=== PATIENT | male | born 1980 | race American Indian/Alaskan Native ===

== ENCOUNTER 2019-03-03 06:08 | Day surgery (SDC) | payer MEDICARE ==
[~2019-03-03 06:08] MED LIST: ANCEF/STERILE WATER 2 GM/20 ML 2 GM/20 ML SYRINGE IV NR; MARCAINE 0.5% INFILTRATI ONE
[2019-03-03] MEDS ORDERED: NACL BACTERIOSTATIC INFILTRATI ONE (06:45)
[2019-03-03] MEDS ORDERED: NACL 0.9% 1000 ML 1,000 ML IV SCH (07:00)
--- NOTE | 2019-03-03 07:12 | Anesthesia Day of Surgery ---
Anesthesia Day of Surgery - Day of Surgery Patient Examined: Yes Patient H&P Reviewed: Yes Patient is NPO: Yes Beta Blockers: Yes
--- NOTE | 2019-03-03 07:12 | Anesthesia Consultation ---
Anesthesia Consult and Med Hx Date of service: 03/03/19 - Airway Anesthetic Teeth Evaluation: Good ROM Head & Neck: Adequate Mental/Hyoid Distance: Adequate Mallampati Class: Class II Intubation Access Assessment: Good - Pre-Operative Health Status ASA Pre-Surgery Classification: ASA4 Proposed Anesthetic Plan: General, MAC - Pulmonary Hx Smoking: Yes (Former) - Cardiovascular System Hx Hypertension: Yes (CHF 15%) Hx Pacemaker: Yes Hx Internal Defibrillator: Yes (Never discharged) - Central Nervous System Hx Psychiatric Problems: Yes - Gastrointestinal Hx Gastroesophageal Reflux Disease: Yes - Endocrine Hx Renal Disease: Yes Hx End Stage Renal Disease: Yes (Last HD) - Other Systems Hx Cancer: No
[2019-03-03] MEDS ORDERED: NACL P/F VIAL (10 ML) 10 ML ONE (07:14)
[2019-03-03] MEDS ORDERED: NACL 0.9% 500 ML 500 ML ONE (07:14)
[2019-03-03] MEDS ORDERED: MARCAINE 0.5% INFILTRATI ONE ×2 (07:14→11:45)
[2019-03-03] MEDS ORDERED: HEPARIN 10,000 UNITS/10 ML ONE (07:14)
[2019-03-03] MEDS ORDERED: ZOFRAN IV PRN (07:30)
[2019-03-03] MEDS ORDERED: PROTONIX PO NR (07:30)
[2019-03-03] MEDS ORDERED: SUBLIMAZE IV PRN (07:30)
[2019-03-03] MEDS ORDERED: SUBLIMAZE ONE ×2 (07:35→10:34)
[2019-03-03] MEDS ORDERED: DIPRIVAN 10 MG/ML IV ONE (07:35)
[2019-03-03] MEDS ORDERED: XYLOCAINE MPF 2% ONE (07:39)
[2019-03-03] MEDS ORDERED: ROBINUL ONE (07:39)
[2019-03-03] MEDS ORDERED: PHENYLEPHRINE/NS Syringe 1,000 MCG/10 ML IV ONE (07:40)
[2019-03-03] MEDS ORDERED: NITROGLYCERIN SYRINGE 0 ML ONE (07:49)
[2019-03-03] MEDS ORDERED: RIFADIN ONE (07:50)
[2019-03-03] MEDS ORDERED: ADRENALIN ONE (08:24)
[2019-03-03] MEDS ORDERED: LEVOPHED IV ONE (08:25)
[2019-03-03] MEDS ORDERED: DEXMEDETOMIDINE IV ONE (08:25)
[2019-03-03] MEDS ORDERED: Vasostrict ONE (08:25)
[2019-03-03] MEDS ORDERED: VERSED IV ONE (08:28)
[2019-03-03] MEDS ORDERED: KETALAR ONE (08:28)
[2019-03-03] MEDS ORDERED: XYLOCAINE 1%/ EPI 1:100,000 INFILTRATI ONE ×3 (08:38→09:10)
[2019-03-03] MEDS ORDERED: SODIUM BICARBONATE ONE (08:38)
[2019-03-03] MEDS ORDERED: HEPARIN ONE ×2 (09:18→09:24)
[2019-03-03] MEDS ORDERED: HEPARIN HEMOD-PORT ONE (09:35)
[2019-03-03] MEDS ORDERED: VERSED ONE (09:56)
[2019-03-03] MEDS ORDERED: HEPARIN 10,000 UNITS/10 ML IV ONE (10:00)
[2019-03-03] MEDS ORDERED: NACL 0.9% 250ML IV ONE (10:00)
[2019-03-03] MEDS ORDERED: NACL 0.9% 100 ML ONE (10:03)
[2019-03-03] MEDS ORDERED: NACL P/F VIAL (10 ML) 20 ML ONE (10:03)
--- NOTE | 2019-03-03 10:27 | Fluoroscopy Report ---
FLUOROSCOPY CENTRAL VENOUS DEVICE PLACEMENT INDICATION: Intraoperative localization, permacath placement, end-stage renal disease. IMPRESSION: 2 images of chest were submitted for documentation purposes with radiology involvement. A right IJ permacath has been inserted which terminates in the superior right atrium. There is no ob vious pneumothorax or pneumomediastinum. Mild cardiomegaly is suspected. Fluoroscopic time: 35 seconds Signer Name: Humble Tang Jr, MD Signed: 03/03/2019 10:23 AM Workstation Name: [id number]
[2019-03-03] MEDS ORDERED: RIFADIN IV ONE (10:30)
[2019-03-03] MEDS ORDERED: NACL 0.9% IR ONE ×2 (10:39)
--- NOTE | 2019-03-03 12:51 | Short Stay Summary ---
Short Stay Documentation Date of service: 03/03/19 Narrative H&P: See H&P - History H&P: obtained from office - Allergies and Medications Current Medications: Allergies No Known Allergies Allergy (Unverified 02/27/19 18:31) Home Medications Medication Instructions Recorded Confirmed Last Taken Type AtorvaSTATin 20 mg PO HS 03/03/19 03/03/19 03/02/19 21:00 History Auryxia 210 mg PO TID 03/03/19 03/03/19 03/02/19 18:00 History Carvedilol 6.25 mg PO BID 03/03/19 03/03/19 03/02/19 17:00 History Dicyclomine 20 mg PO TID 03/03/19 03/03/19 03/02/19 17:00 History Ferric Citrate (Nf) [Auryxia] 210 mg PO TID 03/03/19 03/03/19 03/02/19 17:00 History Folic Acid 1 mg PO DAILY 03/03/19 03/03/19 03/02/19 09:00 History Loperamide 2 mg PO PRN PRN 03/03/19 03/03/19 Unknown History Pantoprazole Sodium 40 mg PO DAILY 03/03/19 03/03/19 03/02/19 09:00 History Sacubitril/Valsartan [Entresto 24 24 mg PO BID 03/03/19 03/03/19 03/02/19 17:00 History - 26 mg] Sevelamer Carbonate 800 mg PO TID 03/03/19 03/03/19 03/02/19 17:00 History Zofran TAB 4 mg PO PRN PRN 03/03/19 03/03/19 Unknown History clonazePAM 1 mg PO HS 03/03/19 03/03/19 03/02/19 20:00 History traZODone 50 mg PO HS 03/03/19 03/03/19 03/02/19 21:00 History Active Medications Fentanyl (Sublimaze) 50 mcg IV Q5MIN PRN PRN Reason: Pain , Severe (7-10) Stop: 03/03/19 18:00 Cefazolin Sodium (Ancef/Sterile Water 2 Gm/20 Ml) 2 gm in 20 mls @ 80 mls/hr IV PREOP NR; Protocol Stop: 03/03/19 23:59 Sodium Chloride (Nacl 0.9% 1000 Ml) 1,000 mls @ 42 mls/hr IV DIRECT CAMILO Last Admin: 03/03/19 07:25 Dose: 42 mls/hr Documented by: Ondansetron HCl (Zofran) 4 mg IV ONCE PRN PRN Reason: Nausea And Vomiting Stop: 03/03/19 16:00 Pantoprazole Sodium (Protonix) 40 mg PO ONCE NR Stop: 03/03/19 16:00 Last Admin: 03/03/19 07:40 Dose: 40 mg Documented by: - Brief post op/procedure progress note Date of procedure: 03/03/19 Pre-op diagnosis: Complications of Dialysis Access Post-op diagnosis: same Procedure: 1. Ultrasound-Guided Access Right Internal Jugular Vein 2. Placement of 19 cm Baerd GlidePath Permacath In Right Internal Jugular Vein 3. Radiologic Supervision with Interpretation 4. Revision of Left Arm Arteriovenous Fistula With Interposition 7 mm Bovine Graft Anesthesia: MAC, local Surgeon: CHYNA ARREDONDO Estimated blood loss: 50-100ml Pathology: list (midportion of left AV fistula sent to pathology) Specimen disposition: to lab Condition: stable - Disposition Condition at discharge: Good Disposition: DC-01 TO HOME OR SELFCARE Short Stay Discharge Plan Activity: other (no heavy lifting with left arm) Wound: open to air, keep clean and dry, per your surgeon's advice (do not get permacath with), other (okay to wash the wound with soap and water but do not soak in water) Special Instructions: other (okay to use permacath for dialysis) Follow up with: CHYNA ARREDONDO MD [Staff Physician] - 14 Days Prescriptions: Oxycodone HCl/Acetaminophen [Percocet 7.5/325 mg] 1 each PO Q6HR PRN #40 tablet PRN Reason: Pain
--- NOTE | 2019-03-03 13:04 | Operative Report ---
Operative Report Operative Report: Date of procedure: 03/03/2019 Pre-operative diagnosis: Complications of Dialysis Access Post-operative diagnosis: Same Procedure(s): 1. Ultrasound-Guided Access Right Internal Vein 2. Placement of 23 cm Bard GlidePath Permacath 3. Radiologic Supervision with Interpretation 4. Revision of Left Arm Arteriovenous Fistula With Interposition 7 mm Bovine Graft Surgeon: Marcelo Galindo MD Food Production Manager: None Anesthesia: MAC/Local EBL: 50 mL Counts: Correct Complications: None Condition: Stable Findings: Successful placement of right IJ permacath. Specimen: None Indication: The patient is a 38-year-old male with a history of end-stage renal disease was on hemodialysis through a left arm brachiocephalic arteriovenous fistula. 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 He is in need of revision of the fistula and was given the risks, benefits, and alternative procedures has consented to the procedure. Description of Procedure: The patient was brought to the operating room and laid in supine position and his right neck and chest were prepped and draped in normal sterile fashion. Ultrasound was used to identify the right internal jugular vein and the overlying skin and soft tissue was anesthetized with lidocaine. A small stab incision was made and then the access needle was used ultrasound guidance in the right internal jugular vein. An 035 J-wire was advanced to the central venous system under fluoroscopic guidance. The tract was serially dilated up to a 16 Sinhala peel-away safety sheath and the inner cannula and wire removed. An exit site on the chest was then chosen and the presumed tunnel was anesthetized with lidocaine. A small stab incision was made on the chest and then the permacath was connected to the tunneler and pulled antegrade through the tunnel. The catheter was inserted into the safe sheath and safety sheath was pulled away. The catheter was positioned under fluoroscopy. Once in adequate position both ports were aspirated and flushed and then primed with the appropriate amount heparin. The neck incision was then closed with 4-0 Monocryl in interrupted subcuticular fashion and dressed with Surgicel. The catheters was dressed sterilely. Final fluoroscopy demonstrated the catheter was in excellent position without any evidence of pneumothorax. At this point the sterile field was broken and then the patient's left arm was prepped and draped in normal sterile fashion. A transverse incision was then created to his previous incision just above the antecubital crease and carried down to the arterial inflow the fistula by sharp dissection. The fistula was dissected circumferentially and then controlled with a vessel loop. I then dissected out the remainder of the fistula within this portion of the incision circumferentially freeing all of the fistula within this incision. I then used lidocaine to anesthetize the skin overlying the midportion of the fistula extending from the upper arm where the fistula was normal in caliber down to just above the previous transverse incision and then made a longitudinal incision using a 10 blade. Sharp dissection was used to carry the incision down to the fistula and then the venous outflow the fistula, and the normal portion of the fistula, was dissected circumferentially and controlled with a vessel loop. I then dissected the entire fistula, within this portion of the incision circumferentially. There was a portion of the fistula that was between skin bridge that was dissected free of the skin bridge and dissected surfaces were essentially freeing the entire fistula. I then suture ligated both the arterial inflow and venous outflow of the fistula with a 2-0 silk and then transected the fistula leaving a cuff to sew an interposition graft. I removed the specimen and passed it off for pathology. I then using Monika-Wick tunneler to tunnel from the arterial inflow incision towards the venous outflow of the fistula. I tunneled medial to the previous incision ensuring that the graft remained covered. I then pulled the graft back through the tunnel and infused with heparinized saline to ensure that it had not been kinked or twisted. Once I did this I then beveled the graft as well as the cuff of the arterial inflow an end to end anastomosis using 2 6-0 Prolene sterile fashion. After creating the anastomosis I released the clamp on the arterial inflow and clamped the outflow of the graft allowing flow into the graft. Hemostasis on the anastomosis was achieved with 6-0 Prolene in interrupted fashion. Once hemostasis was achieved and placed quick clot within the wound to achieve further hemostasis. I then cut the graft to length and beveled the distal portion of the graft as well as beveling the venous cuff of the fistula. I created an end to end anastomosis between the graft and the venous outflow using 2 6-0 Prolene in running fashion. Upon completing the anastomosis I released all clamps allowing flow into the graft which had a palpable thrill. Hemostasis on the anastomosis was achieved with 6-0 Prolene in interrupted fashion. Once hemostasis was achieved I placed quick clot in the incision where the fistula had been transected to achieve hemostasis. Further hemostasis was achieved with Fiona. Once hemostasis was achieved both incisions were anesthetized with 0.5% Marcaine and then closed in 2 layers using 3-0 Vicryl in a running fashion the deep dermal layer and 4-0 Monocryl in running fashion subcuticular and then dressed with Dermabond. The patient tolerated the procedure well, all sponge needle and instrument counts were correct, the patient was taken to recovery in stable condition.
[2019-03-03 14:01] VITALS: BP 112/74
[2019-03-03] MEDS ORDERED: ISOPTO TEARS 0.5% OU ONE (14:12)
--- NOTE | 2019-03-03 14:59 | Post Anesthesia Evaluation ---
- Post Anesthesia Evaluation Patient Participated: Yes Airway Patent: Yes Stable Respiratory Function: Yes Nausea/Vomiting: No Temp > 96.8F: Yes Pain Manageable: Yes Adequeate Hydration: Yes Anesthesia Complications: Yes (see comments) Other Comments: In PACU patient complained of pain and blurred vision in left eye. On exam, left eye was noted to be slightly red compared to right, with normal ROM and pupillary response to light. No foreign body present. Discussed with patient and mother likely diagnosis of corneal abrasion including potential causes and expectant management. He was instructed to avoid rubbing the eye and was given lubricant eye drops for use q6h prn. Contact information for both patient and his mother were obtained for phone followup. Additionally, both were advised of red flag symptoms such as increased pain and worsening vision which would indicate a need to return to the ED for further ophtho evaluation and treatment. Patient mobile: [phone]. Kimberly Youngblood (mother) mobile: [phone]
== END 2019-03-03 15:10 | disposition home or self-care (01) ==
LOC: OR 06:08
PROVIDERS: ATTEND Surgery Vascular Surgery
DX: T82.898A Other specified complication of vascular prosthetic devices, implants and grafts, initial encounter (principal); I13.2 Hypertensive heart and chronic kidney disease with heart failure and with stage 5 chronic kidney disease, or end stage renal disease; N18.6 End stage renal disease; I50.9 Heart failure, unspecified; G43.909 Migraine, unspecified, not intractable, without status migrainosus; K21.9 Gastro-esophageal reflux disease without esophagitis; F32.9 Major depressive disorder, single episode, unspecified; F41.9 Anxiety disorder, unspecified; Z98.890 Other specified postprocedural states; Z95.0 Presence of cardiac pacemaker; Z90.49 Acquired absence of other specified parts of digestive tract; Z79.899 Other long term (current) drug therapy; Z87.891 Personal history of nicotine dependence
CPT/HCPCS: 36558; 36832; 77001; 82803; 88304; C1750; C1768; J0171; J0690; J1644; J2250; J2370; J2704; J3010; J3490; J7030; J7040; J7050

== ENCOUNTER 2019-03-12 06:01 | Day surgery (SDC) | payer MEDICARE ==
[2019-03-12] MEDS ORDERED: SUBLIMAZE ONE ×3 (07:14→10:21)
[2019-03-12] MEDS ORDERED: XYLOCAINE MPF 2% ONE (07:14)
[2019-03-12] MEDS ORDERED: DIPRIVAN 10 MG/ML IV ONE (07:15)
[2019-03-12] MEDS ORDERED: XYLOCAINE 1% 20 mL ONE (07:27)
[2019-03-12] MEDS ORDERED: SODIUM BICARBONATE ONE (07:27)
--- NOTE | 2019-03-12 07:39 | Anesthesia Consultation ---
Anesthesia Consult and Med Hx Date of service: 03/12/19 - Airway Anesthetic Teeth Evaluation: Caps ROM Head & Neck: Adequate Mental/Hyoid Distance: Adequate Mallampati Class: Class II Intubation Access Assessment: Good - Pulmonary Exam CTA: Yes - Cardiac Exam Cardiac Exam: RRR - Pre-Operative Health Status ASA Pre-Surgery Classification: ASA4 Proposed Anesthetic Plan: General - Pulmonary Hx Smoking: Yes (Former) - Cardiovascular System Hx Hypertension: Yes Hx Pacemaker: Yes Hx Internal Defibrillator: Yes (CHF 15 % , never discharged ) - Central Nervous System Hx Psychiatric Problems: Yes - Gastrointestinal Hx Gastroesophageal Reflux Disease: Yes - Endocrine Hx Renal Disease: Yes Hx End Stage Renal Disease: Yes - Other Systems Hx Cancer: No - Additional Comments Anesthesia Medical History Comments: HTN, ESRD on HD last dialysis -one day ago, CHF EF 15% , has AICD . Had GA one week ago unevenful. For GA for I & D .
[2019-03-12] MEDS ORDERED: ZOFRAN IV PRN (07:40)
--- NOTE | 2019-03-12 07:40 | Anesthesia Day of Surgery ---
Anesthesia Day of Surgery - Day of Surgery Patient Examined: Yes Patient H&P Reviewed: Yes Patient is NPO: Yes
[2019-03-12] MEDS ORDERED: NACL 0.9% 1000 ML 1,000 ML IV SCH (08:00)
[2019-03-12] MEDS ORDERED: DEXMEDETOMIDINE IV ONE (08:01)
[2019-03-12] MEDS ORDERED: KETALAR ONE (08:15)
[2019-03-12] MEDS ORDERED: VERSED IV ONE (08:15)
[2019-03-12] MEDS ORDERED: NACL 0.9% IR ONE (08:16)
[2019-03-12] MEDS ORDERED: XYLOCAINE 1% 20 mL INFILTRATI ONE (08:16)
[2019-03-12] MEDS ORDERED: BACITRACIN IR ONE (08:16)
[2019-03-12] MEDS ORDERED: NACL P/F VIAL (10 ML) INFILTRATI ONE (08:16)
[2019-03-12] MEDS ORDERED: BACITRACIN ONE (08:48)
[2019-03-12] MEDS ORDERED: NACL P/F VIAL (10 ML) 10 ML ONE (08:48)
--- NOTE | 2019-03-12 09:26 | Short Stay Summary ---
Short Stay Documentation Date of service: 03/12/19 Narrative H&P: See H&P - History H&P: obtained from office - Allergies and Medications Current Medications: Allergies No Known Allergies Allergy (Unverified 03/11/19 16:21) Home Medications Medication Instructions Recorded Confirmed Last Taken Type AtorvaSTATin 20 mg PO HS 03/03/19 03/11/19 03/11/19 13:00 History Auryxia 210 mg PO TID 03/03/19 03/11/19 03/11/19 13:00 History Carvedilol 6.25 mg PO BID 03/03/19 03/11/19 03/12/19 05:00 History Dicyclomine 20 mg PO TID 03/03/19 03/11/19 03/11/19 13:00 History Ferric Citrate (Nf) [Auryxia] 210 mg PO TID 03/03/19 03/11/19 03/11/19 13:00 History Folic Acid 1 mg PO DAILY 03/03/19 03/11/19 03/11/19 13:00 History Loperamide 2 mg PO PRN PRN 03/03/19 03/11/19 03/11/19 13:00 History Oxycodone HCl/Acetaminophen 1 each PO Q6HR PRN #40 tablet 03/03/19 03/11/19 03/11/19 13:00 Rx [Percocet 7.5/325 mg] Pantoprazole Sodium 40 mg PO DAILY 03/03/19 03/11/19 03/12/19 05:00 History Sacubitril/Valsartan [Entresto 24 24 mg PO BID 03/03/19 03/11/19 03/11/19 13:00 History - 26 mg] Sevelamer Carbonate 800 mg PO TID 03/03/19 03/11/19 03/11/19 13:00 History Zofran TAB 4 mg PO PRN PRN 03/03/19 03/11/19 03/11/19 13:00 History clonazePAM 1 mg PO HS 03/03/19 03/11/19 03/11/19 13:00 History traZODone 50 mg PO HS 03/03/19 03/11/19 03/11/19 13:00 History Hydralazine HCl 50 mg PO TID 03/11/19 03/11/1919 05:00 History Active Medications Hydromorphone HCl (Dilaudid) 0.5 mg IV Q10MIN PRN PRN Reason: Pain , Severe (7-10) Stop: 03/12/19 20:00 Sodium Chloride (Nacl 0.9% 1000 Ml) 1,000 mls @ 75 mls/hr IV DIRECT CAMILO Last Admin: 03/12/19 08:09 Dose: 75 mls/hr Documented by: Ondansetron HCl (Zofran) 4 mg IV ONCE PRN PRN Reason: Nausea And Vomiting Stop: 03/12/19 16:00 - Brief post op/procedure progress note Date of procedure: 03/12/19 Pre-op diagnosis: Complications of Dialysis Access Post-op diagnosis: same Procedure: 1. Evacuation of Left Arm Postoperative Hematoma with Pulse Lavage of Wound Anesthesia: MAC, local Surgeon: CHYNA ARREDONDO Estimated blood loss: minimal Pathology: list (left arm hematoma) Specimen disposition: discarded Condition: stable - Disposition Condition at discharge: Good Disposition: DC-01 TO HOME OR SELFCARE Short Stay Discharge Plan Activity: other (no heavy lifting with left arm) Wound: keep clean and dry (Once the bandages are removed, okay to wash with soap and water but do not soak in water), remove dressing (Keep Gunnar bandage in place for 72 hour prior to removing.), other (keep left arm elevated when not using the arm) Follow up with: CHYNA ARREDONDO MD [Staff Physician] - 14 Days
--- NOTE | 2019-03-12 09:34 | Operative Report ---
Operative Report Operative Report: Date of Procedure: 03/12/2019 Pre-operative Diagnosis: Complications of Dialysis Access Post-operative Diagnosis: Same Procedure(s): 1. Evacuation of Left Arm Postoperative Hematoma with Pulse Lavage of Wound Surgeon: Marcelo Galindo M.D. Rotary Derrick Operator: Kathi Anesthesia: Local/MAC EBL: Minimal Counts: Correct Complications: None Condition: Stable Findings: Hematoma within the wound without evidence of infection. The graft was not exposed. Specimen: Hematoma was discarded Indication: The patient is a 38-year-old male with a history of end-stage renal disease who recently had revision of his left arm arteriovenous fistula with interposition bovine graft. She presents with significant swelling of the left arm and at the area of incision. He is in need of incision and drainage of the incision with exploration of the incision. He was given the risks, benefits, and alternative procedures and consented to the procedure. Description of Procedure: The patient was brought to the operating room and laid in supine position. After he was adequately sedated his left arm was prepped and draped in normal sterile fashion. Lidocaine was used to anesthetize the previous incision and curved Mayos were used to reopen the incision. Upon opening the incision was significant amount of hematoma that was evacuated. Once was evacuated and pulse lavage infused with antibiotics was used to irrigate the wound. Once the wound was irrigated was explored and there were 2 small areas of oozing on the muscle that was controlled with cautery. Further irrigation of the wound revealed no evidence of obvious infection. Additionally there was no evidence of exposed graft. 2-0 Vicryl suture in interrupted fashion with then used to close the space and reapproximate the deep tissue. Zip Tie wound closure were then placed on each skin edge and tightened to reapproximate the skin edges. 2-0 Ethilon in horizontal mattress fashion was then used to reapproximate the skin edges and the transverse incision at the antecubital crease. Fluffs were folded in half and placed over the upper arm incision and then the arm was wrapped with an Gunnar bandage to apply pressure and minimize the space to decrease the chances of recannulation of fluid within the incision. The patient tolerated the procedure well. All sponge, needle, instrument counts were correct. The patient was taken to the recovery area in stable condition.
[2019-03-12] MEDS: DILAUDID IV PRN ×2 (10:04→10:14)
[2019-03-12] MEDS: SUBLIMAZE IV PRN ×2 (10:20→10:43)
--- NOTE | 2019-03-12 11:19 | Post Anesthesia Evaluation ---
- Post Anesthesia Evaluation Patient Participated: Yes Airway Patent: Yes Stable Respiratory Function: Yes Nausea/Vomiting: No Temp > 96.8F: Yes Pain Manageable: Yes Adequeate Hydration: Yes Anesthesia Complications: No Block Receding Appropriately: Not Applicable Patient on Ventilator: No
[2019-03-12 14:24] VITALS: BP 159/88
== END 2019-03-12 06:02 | disposition home or self-care (01) ==
LOC: OR 06:01
PROVIDERS: ATTEND Surgery Vascular Surgery
DX: L76.32 Postprocedural hematoma of skin and subcutaneous tissue following other procedure (principal); T82.898A Other specified complication of vascular prosthetic devices, implants and grafts, initial encounter; I13.2 Hypertensive heart and chronic kidney disease with heart failure and with stage 5 chronic kidney disease, or end stage renal disease; N18.6 End stage renal disease; I50.9 Heart failure, unspecified; K21.9 Gastro-esophageal reflux disease without esophagitis; G43.909 Migraine, unspecified, not intractable, without status migrainosus; F32.9 Major depressive disorder, single episode, unspecified; F41.9 Anxiety disorder, unspecified; Z98.890 Other specified postprocedural states; Z79.899 Other long term (current) drug therapy; Z95.0 Presence of cardiac pacemaker; Z90.49 Acquired absence of other specified parts of digestive tract; Z87.891 Personal history of nicotine dependence; Z86.2 Personal history of diseases of the blood and blood-forming organs and certain disorders involving the immune mechanism
CPT/HCPCS: 10140; 82803; J1170; J2250; J2704; J3010; J3490; J7030

== ENCOUNTER 2019-03-16 20:27 | Inpatient (IN) | payer MEDICARE ==
--- NOTE | 2019-03-16 20:59 | Emergency Department Report ---
Blank Doc - Documentation Documentation: This is a 38-year-old male that presents with left arm pain. Had surgery to the arm for dialysis port. This initial assessment/diagnostic orders/clinical plan/treatment(s) is/are subject to change based on patient's health status, clinical progression and re- assessment by fellow clinical providers in the ED. Further treatment and workup at subsequent clinical providers discretion. Patient/guardians urged not to elope from the ED as their condition may be serious if not clinically assessed and managed. Initial orders include: 1- Patient sent to MAIN ED for further evaluation and treatment 2- labs
--- NOTE | 2019-03-16 22:08 | Emergency Department Report ---
ED Upper Extremity Inj HPI - General Chief Complaint: Extremity Injury, Upper Stated Complaint: LEFT ARM PAIN Time Seen by Provider: 03/16/19 20:58 Source: patient Mode of arrival: Ambulatory Limitations: No Limitations - History of Present Illness Initial Comments: 38-year-old male patient with ESRD presents to ED with left arm pain. The patient underwent AV graft placement 2 weeks ago, then evacuation of hematoma 9 days later. Patient presents complaining of swelling in the left forearm and hand since the first surgery. States the surgical site was since his second surgery. Patient reports continued pain in the arm. Patient was dialyzed today via his PermCath. Patient reported he spoke with Dr. Edge, vascular surgeon, who advised to come to the ER. Vascular Surgeon: Dr Marcelo Galindo MD Complaint: Injury to:: left, forearm -: week(s) (2) Improves With: none Worsens With: movement of extremity Context: other (recent surgery) - Related Data Home Medications Medication Instructions Recorded Confirmed Last Taken AtorvaSTATin 20 mg PO HS 03/03/19 03/17/19 2 Days Ago ~03/15/19 Auryxia 420 mg PO TID 03/03/19 03/17/19 1 Day Ago ~03/16/19 Carvedilol 6.25 mg PO BID 03/03/19 03/17/19 1 Day Ago ~03/16/19 Dicyclomine 20 mg PO TID 03/03/19 03/17/19 1 Day Ago ~03/16/19 Folic Acid 1 mg PO DAILY 03/03/19 03/17/19 1 Day Ago ~03/16/19 Loperamide 2 mg PO PRN PRN 03/03/19 03/17/19 03/11/19 13:00 Pantoprazole Sodium 40 mg PO DAILY 03/03/19 03/17/19 1 Day Ago ~03/16/19 Sevelamer Carbonate 800 mg PO TID 03/03/19 03/17/19 1 Day Ago ~03/16/19 Zofran TAB 4 mg PO PRN PRN 03/03/19 03/17/19 1 Day Ago ~03/16/19 clonazePAM 1 mg PO HS 03/03/19 03/17/19 2 Days Ago ~03/15/19 traZODone 50 mg PO HS 03/03/19 03/17/19 2 Days Ago ~03/15/19 Hydralazine HCl 50 mg PO TID 03/11/19 03/17/19 1 Day Ago ~03/16/19 raNITIdine HCl [Zantac] 150 mg PO BID 03/17/19 03/17/19 1 Day Ago ~03/16/19 Allergies Allergy/AdvReac Type Severity Reaction Status Date / Time No Known Allergies Allergy Unverified 03/11/19 16:21 ED Review of Systems ROS: Stated complaint: LEFT ARM PAIN Other details as noted in HPI Comment: All other systems reviewed and negative Constitutional: denies: fever Musculoskeletal: as per HPI ED Past Medical Hx - Past Medical History Previous Medical History?: Yes Hx Hypertension: Yes Hx Congestive Heart Failure: Yes Hx GERD: Yes Hx Renal Disease: Yes (HD M,W,F) Hx Headaches / Migraines: Yes (Migraines) - Surgical History Past Surgical History?: Yes Hx Pacemaker: Yes Hx Internal Defibrillator: Yes (CHF 15 % , never discharged ) Hx Cholecystectomy: Yes Additional Surgical History: Vascath for dialysis, Surgery left arm last Saturday - Social History Smoking Status: Never Smoker - Medications Home Medications: Home Medications Medication Instructions Recorded Confirmed Last Taken Type AtorvaSTATin 20 mg PO HS 03/03/19 03/17/19 2 Days Ago History ~03/15/19 Auryxia 420 mg PO TID 03/03/19 03/17/19 1 Day Ago History ~03/16/19 Carvedilol 6.25 mg PO BID 03/03/19 03/17/19 1 Day Ago History ~03/16/19 Dicyclomine 20 mg PO TID 03/03/19 03/17/19 1 Day Ago History ~03/16/19 Folic Acid 1 mg PO DAILY 03/03/19 03/17/19 1 Day Ago History ~03/16/19 Loperamide 2 mg PO PRN PRN 03/03/19 03/17/19 03/11/19 13:00 History Pantoprazole Sodium 40 mg PO DAILY 03/03/19 03/17/19 1 Day Ago History ~03/16/19 Sevelamer Carbonate 800 mg PO TID 03/03/19 03/17/19 1 Day Ago History ~03/16/19 Zofran TAB 4 mg PO PRN PRN 03/03/19 03/17/19 1 Day Ago History ~03/16/19 clonazePAM 1 mg PO HS 03/03/19 03/17/19 2 Days Ago History ~03/15/19 traZODone 50 mg PO HS 03/03/19 03/17/19 2 Days Ago History ~03/15/19 Hydralazine HCl 50 mg PO TID 03/11/19 03/17/19 1 Day Ago History ~03/16/19 raNITIdine HCl [Zantac] 150 mg PO BID 03/17/19 03/17/19 1 Day Ago History ~03/16/19 ED Physical Exam - General Limitations: No Limitations General appearance: alert, in no apparent distress - Head Head exam: Present: atraumatic, normocephalic - Eye Eye exam: Present: normal appearance - ENT ENT exam: Present: mucous membranes moist - Neck Neck exam: Present: normal inspection - Respiratory Respiratory exam: Present: normal lung sounds bilaterally. Absent: respiratory distress - Cardiovascular Cardiovascular Exam: Present: regular rate, normal rhythm - GI/Abdominal GI/Abdominal exam: Absent: distended - Extremities Exam Extremities exam: Present: other (no palpable thrill present; surgical site has some dried blood, no active bleeding, no erythema or purulent discharge present; 2+ edema to left hand; 1+ edema to bilat ankles and lower legs) - Neurological Exam Neurological exam: Present: alert, oriented X3 - Psychiatric Psychiatric exam: Present: normal affect, normal mood - Skin Skin exam: Present: warm, dry, intact, normal color ED Course Vital Signs 03/16/19 03/16/19 03/16/19 20:52 21:00 23:37 Temperature 98.4 F 98.4 F Pulse Rate 93 H 93 H 76 Respiratory 18 18 16 Rate Blood Pressure 140/95 146/95 Blood Pressure 139/89 [Right] O2 Sat by Pulse 100 100 99 Oximetry 03/17/19 03/17/19 03:07 03:26 Temperature 98.2 F 98.3 F Pulse Rate 84 101 H Respiratory 16 18 Rate Blood Pressure 146/103 Blood Pressure 149/96 [Right] O2 Sat by Pulse 99 100 Oximetry - Consultations Consultation #1: 03/16/19 22:41 Spoke w/ Dr Rubin. Suggests admit for pain control. Will obtain US of dialysis access in the AM ED Medical Decision Making - Lab Data Result diagrams: 03/17/19 02:08 03/17/19 02:08 - Medical Decision Making Spoke w/ Dr Rubin, states admit for pain control and US of vascular access site. Hospitalist, Dr Cottrell, to admit. Critical care attestation.: If time is entered above; I have spent that time in minutes in the direct care of this critically ill patient, excluding procedure time. ED Disposition Clinical Impression: Pain of left upper extremity Disposition: OP ADMIT IP TO THIS HOSP Is pt being admited?: Yes Condition: Stable Time of Disposition: 23:18
[2019-03-16] MEDS ORDERED: MORPHINE IV ONE (22:39)
[2019-03-16] MEDS ORDERED: ZOFRAN ONE (23:38)
[2019-03-16] MEDS ORDERED: ZOFRAN IV ONE (23:38)
[2019-03-17 00:29] LABS: Basophils # (Auto) 0.1 K/mm3 (0.0-0.1); Basophils % (Auto) 1.5 % (0.0-1.8); Eosinophils # (Auto) 0.1 K/mm3 (0.0-0.4); Eosinophils % (Auto) 1.8 % (0.0-4.3); Hematocrit 26.3 % (35.5-45.6); Hemoglobin 8.9 gm/dl (11.8-15.2); Lymphocytes # (Auto) 0.4 K/mm3 (1.2-5.4); Lymphocytes % (Auto) 8.6 % (13.4-35.0); Mean Corpuscular HGB Conc 34 % (32-34); Mean Corpuscular Volume 100 fl (84-94); Monocytes # (Auto) 0.3 K/mm3 (0.0-0.8); Monocytes % (Auto) 7.4 % (0.0-7.3); Platelet Count 148 K/mm3 (140-440); Red Blood Count 2.63 M/mm3 (3.65-5.03)
[2019-03-17 00:32] LABS: Red Cell Distribution Width 20.1 % (13.2-15.2)
[2019-03-17 00:47] LABS: INR 1.33 (0.87-1.13)
--- NOTE | 2019-03-17 01:26 | History and Physical Report ---
History of Present Illness Date of examination: 03/17/19 Date of admission: 03/17/19 00:47 History of present illness: 38-year-old man with a history of hypertension,ESRD, CHF comes to the emergency room with complaints of complain of LUE pain, at the site of his AVG. The graft was placed on 02/18 with evacuation of hematoma on the . The pain is sharp, constant, intensity 7/10, no radiation, he cannot identify exacerbating or relieving factors. He complains of generalized weakness Review Of Systems: Constitutional: no weight loss Ears, eyes, nose, mouth and throat: no nasal congestion, no nasal discharge, no sinus pressure, blurry vision, diplopia Neck: No neck pain or rigidity. Cardiovascular: No palpitations, chest pain Respiratory: No shortness of breath, cough Gastrointestinal: No abdominal pain, hematochezia Genitourinary : no dysuria, frequency , hematuria Musculoskeletal: no muscle ache Integumentary: no rash, no pruritis Neurological: no parathesias, focal weakness Endocrine: no cold or heat intolerance, no polyuria or polydipsia Hematologic/Lymphatic: no easy bruising, no easy bleeding, no gland swelling Allergic/Immunologic: no urticaria, no angioedema. PAST MEDICAL HISTORY:hypertension, ESRD, CHF PAST SURGICAL HISTORY: AVG FAMILY HISTORY:hypertension SOCIAL HISTORY: Denies tobacco, drugs, social alcohol Medications and Allergies Allergies Allergy/AdvReac Type Severity Reaction Status Date / Time No Known Allergies Allergy Unverified 03/11/19 16:21 Home Medications Medication Instructions Recorded Confirmed Last Taken Type AtorvaSTATin 20 mg PO HS 03/03/19 03/17/19 2 Days Ago History ~03/15/19 Auryxia 420 mg PO TID 03/03/19 03/17/19 1 Day Ago History ~03/16/19 Carvedilol 6.25 mg PO BID 03/03/19 03/17/19 1 Day Ago History ~03/16/19 Dicyclomine 20 mg PO TID 03/03/19 03/17/19 1 Day Ago History ~03/16/19 Folic Acid 1 mg PO DAILY 03/03/19 03/17/19 1 Day Ago History ~03/16/19 Loperamide 2 mg PO PRN PRN 03/03/19 03/17/19 03/11/19 13:00 History Pantoprazole Sodium 40 mg PO DAILY 03/03/19 03/17/19 1 Day Ago History ~03/16/19 Sevelamer Carbonate 800 mg PO TID 03/03/19 03/17/19 1 Day Ago History ~03/16/19 Zofran TAB 4 mg PO PRN PRN 03/03/19 03/17/19 1 Day Ago History ~03/16/19 clonazePAM 1 mg PO HS 03/03/19 03/17/19 2 Days Ago History ~03/15/19 traZODone 50 mg PO HS 03/03/19 03/17/19 2 Days Ago History ~03/15/19 Hydralazine HCl 50 mg PO TID 03/11/19 03/17/19 1 Day Ago History ~03/16/19 raNITIdine HCl [Zantac] 150 mg PO BID 03/17/19 03/17/19 1 Day Ago History ~03/16/19 Exam - Physical Exam Narrative exam: Gen. appearance: Patient lying in bed in no acute distress HEENT: Normocephalic/atraumatic, pupils equal round reactive to light, extra occular movement intact, no scleral icterus, no JVD or thyromegaly or nodule, neck is supple, mucous membrane moist, no erythema or exudate Heart: S1-S2, regular rate and rhythm Lungs: Clear to auscultation bilateral breathing comfortable Abdomen: Positive bowel sounds, nontender, nondistended, no organomegaly Extremities: No edema, cyanosis, clubbing Neuro:: Oriented 3 , cranial nerves II-12 intact, speech, motor intact Skin: No rash, nodules, warm dry - Constitutional Vitals: Temp Pulse Resp BP Pulse Ox 98.4 F 76 16 139/89 99 03/16/19 21:00 03/16/19 23:37 03/16/19 23:37 03/16/19 23:37 03/16/19 23:37 Results - Labs CBC & Chem 7: 03/16/19 23:31 03/16/19 23:31 Labs: Abnormal lab results 03/16/19 03/16/19 Range/Units 23:31 23:31 RBC 2.63 L (3.65-5.03) M/mm3 Hgb 8.9 L (11.8-15.2) gm/dl Hct 26.3 L (35.5-45.6) % MCV 100 H (84-94) fl MCH 34 H (28-32) pg RDW 20.1 H (13.2-15.2) % Lymph % (Auto) 8.6 L (13.4-35.0) % [place] % (Auto) 7.4 H (0.0-7.3) % Lymph # 0.4 L (1.2-5.4) K/mm3 Seg Neutrophils % 80.7 H (40.0-70.0) % PT 16.1 H (12.2-14.9) Sec. INR 1.33 H (0.87-1.13) Assessment and Plan Assessment Malfunction of AVG Intractable pain Recent evacuation of hematoma Hypertension ESRD on HD Plan Admit to medicine Consult IR, renal, start IV morphine DVT prophylaxis
[2019-03-17] MEDS ORDERED: TYLENOL PO PRN (01:28)
[2019-03-17] MEDS ORDERED: ZOFRAN IV PRN (01:28)
[2019-03-17] MEDS ORDERED: SODIUM CHLORIDE FLUSH SYRINGE 10 ML IV PRN (01:28)
[2019-03-17 01:39] LABS: Partial Thromboplastin Time 221.3 Sec. (24.2-36.6)
[2019-03-17 01:45] LABS: Albumin 4.6 g/dL (3.9-5); Calcium 10.5 mg/dL (8.4-10.2)
[2019-03-17] MEDS ORDERED: MORPHINE ONE (02:07)
[2019-03-17] MEDS: MORPHINE IV PRN ×4 (02:16→21:18)
[2019-03-17 02:38] LABS: Basophils # (Auto) 0.1 K/mm3 (0.0-0.1); Basophils % (Auto) 1.4 % (0.0-1.8); Eosinophils # (Auto) 0.1 K/mm3 (0.0-0.4); Eosinophils % (Auto) 1.6 % (0.0-4.3); Hematocrit 24.9 % (35.5-45.6); Hemoglobin 8.4 gm/dl (11.8-15.2); Lymphocytes # (Auto) 0.4 K/mm3 (1.2-5.4); Lymphocytes % (Auto) 7.5 % (13.4-35.0); Mean Corpuscular HGB Conc 34 % (32-34); Mean Corpuscular Volume 99 fl (84-94); Monocytes # (Auto) 0.5 K/mm3 (0.0-0.8); Monocytes % (Auto) 9.7 % (0.0-7.3); Platelet Count 131 K/mm3 (140-440); Red Blood Count 2.51 M/mm3 (3.65-5.03)
--- NOTE | 2019-03-17 09:55 | Event Note ---
Date: 03/17/19 38-year-old male patient with multiple medical problems including end-stage renal disease on hemodialysis was admitted this morning through emergency room with left upper extremity pain the site of AV graft.Vascular and nephrology consultation. Since seen and examined medical records reviewed, Continue the current management. Assessment and plan: Malfunction of AVG Intractable pain Recent evacuation of hematoma Hypertension ESRD on HD New current management Follow vascular and nephrology evaluation and recommendations
[2019-03-17] MEDS: SODIUM CHLORIDE FLUSH SYRINGE 10 ML IV SCH ×2 (11:05→21:19)
[2019-03-17] MEDS ORDERED: HEPARIN/NS 5000 UNIT/500ML(CATH LAB) 1,000 ML IR ONE (11:30)
[2019-03-17] MEDS ORDERED: ANCEF/STERILE WATER 2 GM/20 ML 2 GM/20 ML SYRINGE IV ONE (11:31)
--- NOTE | 2019-03-17 11:36 | Event Note ---
Date: 03/17/19 Patient well known to me. Presents with continued arm swelling and pain after revision of left arm AVF however it's significantly improved. Will set up for a fistulagram with central venogram and possible intervention.
[2019-03-17] MEDS ORDERED: SUBLIMAZE ONE (11:44)
[2019-03-17] MEDS ORDERED: VERSED ONE (11:44)
[2019-03-17] MEDS ORDERED: HEPARIN 10,000 UNITS/10 ML ONE (11:45)
[2019-03-17] MEDS ORDERED: NACL 0.9% 500 ML 500 ML ONE (11:46)
[2019-03-17] MEDS: XYLOCAINE 2% INFILTRATI ONE ×2 (12:22→12:39)
[2019-03-17] MEDS ORDERED: DILAUDID ONE (12:24)
--- NOTE | 2019-03-17 13:08 | Operative Report ---
Operative Report Operative Report: Date of Procedure: 03/17/2019 Pre-operative Diagnosis: Complications of Dialysis Access Post-operative Diagnosis: Same Procedure(s): 1. Access Left Arm AV Graft With 7 Scottish Sheath Venous 2. Fistulogram with Central Venogram And Arterial Reflux 3. Angioplasty and Stent of Left Arm AV Graft with 10 x 40 Lander Balloon and 9 x 60 Covera Stent Graft 4. Radiologic Supervision with Interpretation Surgeon: Marcelo Galindo M.D. Client Support Administrator: None Anesthesia: Local and IV Sedation EBL: Minimal Counts: Correct Complications: None Condition: Stable Findings: 80% stenosis of the cephalic vein in the upper arm and 50% stenosis of the venous anastomosis. The cephalic vein stenosis was reduced to ap proximately 50% stenosis and the venous anastomosis was reduced to less than 10% stenosis after intervention. Specimen: None Indication: The patient is a 38-year-old male with a history of end-stage renal disease who recently had revision of left arm arteriovenous fistula with an interposition graft. He has required evacuation of a hematoma and presents with continued swelling of the arm despite some improvement he continues to have a swollen and pain. The decision was made to bring him to the [facility] for a fistulogram to evaluate for possible proximal stenosis. He was given the risks, benefits, and alternative procedures and consented to the procedure. Description of Procedure: The patient was brought to the [facility] and laid in supine position. After timeout was performed his left arm was prepped and draped in normal sterile fashion he was given IV sedation. Lidocaine was used to anesthetize the skin overlying the graft and micropuncture technique was used to access the graft was a venous outflow. A 7 Scottish sheath was placed by Seldinger technique. A diagnostic cystogram performed revealed an approximately 50% stenosis of the venous anastomosis and 80% stenosis in the cephalic vein just distal to that. The remainder of the cephalic vein including the cephalic arch was patent without any flow-limiting stenosis. The central venous system was patent without any flow-limiting stenosis. I advanced a 0.035 J-wire through the areas of stenosis and into the central venous system and then perform angioplasty of the cephalic vein stenosis with a 10 x 40 Lander Balloon reducing the stenosis to approximately 15%. I decided that the anastomosis required a cover stent since the procedure was performed 2 weeks ago and I was worried about possible hemorrhage. I exchanged the 7 Scottish sheath for an 8 Scottish sheath and then placed a 9 x 60 Covera Stent Graft across the anastomosis and postdilated it with a 10 x 40 balloon. This reduced the stenosis to less than 10%. I then removed the balloon and wire and used a 2-0 Ethilon in slipknot fashion to close the entry site after removing the sheath. A sterile dressing was then placed over the entrance site and then I wrapped the patient's arm with a Gunnar bandages. The patient tolerated the procedure well and was transported to his room in stable condition.
[2019-03-17] MEDS ORDERED: PERCOCET 5/325 PO PRN (13:19)
[2019-03-17] MEDS: RENVELA PO SCH (17:30)
--- NOTE | 2019-03-17 20:36 | Consultation ---
History of Present Illness - Reason for Consult Consult date: 03/17/19 end stage renal disease - History of Present Illness Mr. Iraheta is a 38yo with ESRD on HD qMWF via [facility] who presented to the ED with left arm pain and swelling. He is s/p AVG placement apppx two weeks ago followed by evacuation of hematoma. He discussed with Dr. Edge who advised that patient to come to the ER. Mr. Iraheta reports that he completed his dialysis treatment yesterday. Past History Past Medical History: ESRD, hypertension, hyperlipidemia Past Surgical History: PTCA (AV access creation), Other Social history: no significant social history Family history: no significant family history Medications and Allergies Allergies Allergy/AdvReac Type Severity Reaction Status Date / Time No Known Allergies Allergy Unverified 03/11/19 16:21 Home Medications Medication Instructions Recorded Confirmed Last Taken Type AtorvaSTATin 20 mg PO HS 03/03/19 03/17/19 2 Days Ago History ~03/15/19 Auryxia 420 mg PO TID 03/03/19 03/17/19 1 Day Ago History ~03/16/19 Carvedilol 6.25 mg PO BID 03/03/19 03/17/19 1 Day Ago History ~03/16/19 Dicyclomine 20 mg PO TID 03/03/19 03/17/19 1 Day Ago History ~03/16/19 Folic Acid 1 mg PO DAILY 03/03/19 03/17/19 1 Day Ago History ~03/16/19 Loperamide 2 mg PO PRN PRN 03/03/19 03/17/19 03/11/19 13:00 History Pantoprazole Sodium 40 mg PO DAILY 03/03/19 03/17/19 1 Day Ago History ~03/16/19 Sevelamer Carbonate 800 mg PO TID 03/03/19 03/17/19 1 Day Ago History ~03/16/19 Zofran TAB 4 mg PO PRN PRN 03/03/19 03/17/19 1 Day Ago History ~03/16/19 clonazePAM 1 mg PO HS 03/03/19 03/17/19 2 Days Ago History ~03/15/19 traZODone 50 mg PO HS 03/03/19 03/17/19 2 Days Ago History ~03/15/19 Hydralazine HCl 50 mg PO TID 03/11/19 03/17/19 1 Day Ago History ~03/16/19 raNITIdine HCl [Zantac] 150 mg PO BID 03/17/19 03/17/19 1 Day Ago History ~03/16/19 Active Meds: Active Medications Acetaminophen (Tylenol) 650 mg PO Q4H PRN PRN Reason: Pain MILD(1-3)/Fever >100.5/OROZCO Atorvastatin Calcium (Lipitor) 20 mg PO QHS [facility] Carvedilol (Coreg) 6.25 mg PO BID [facility] Clonazepam (Klonopin) 0.5 mg PO QHS [facility] Hydralazine HCl (Apresoline) 50 mg PO TID [facility] Morphine Sulfate (Morphine) 2 mg IV Q4H PRN PRN Reason: Pain, Moderate (4-6) Last Admin: 03/17/19 13:43 Dose: 2 mg Documented by: Ondansetron HCl (Zofran) 4 mg IV Q8H PRN PRN Reason: Nausea And Vomiting Oxycodone/Acetaminophen (Percocet 5/325) 2 tab PO Q4H PRN PRN Reason: Pain, Moderate (4-6) Sevelamer Carbonate (Renvela) 800 mg PO AC [facility] Last Admin: 03/17/19 17:30 Dose: 800 mg Documented by: Sodium Chloride (Sodium Chloride Flush Syringe 10 Ml) 10 ml IV BID [facility] Last Admin: 03/17/19 11:05 Dose: 10 ml Documented by: Sodium Chloride (Sodium Chloride Flush Syringe 10 Ml) 10 ml IV PRN PRN PRN Reason: LINE FLUSH Trazodone HCl (Desyrel) 50 mg PO QHS [facility] Review of Systems All systems: negative Exam - Vital Signs Vital signs: Vital Signs Temp Pulse Resp BP Pulse Ox 98.4 F 93 H 18 140/95 100 03/16/19 20:52 03/16/19 20:52 03/16/19 20:52 03/16/19 20:52 03/16/19 20:52 - General Appearance General appearance: well-developed, well-nourished EENT: ATNC Respiratory: Clear to Ascultation Heart: regular, S1S2 Gastrointestinal: Present: normal. Absent: tenderness, distended Integumentary: no rash, warm and dry Musculoskeletal: Present: other (Left upper arm swelling; incision w/ luiz intact; +ankle edema) Psychiatric: cooperative Results - Lab Results 03/17/19 02:08 03/17/19 02:08 Most recent lab results Calcium 10.0 mg/dL (8.4-10.2) 03/17/19 02:08 Assessment and Plan Impression: * End stage renal disease * Left arm swelling/pain s/p AVG creation * Hypertension * Anemia secondary to ESRD * Secondary hyperparathyroidism Plan: * No acute indication for dialysis today as patient received dialysis yesterday * Resume MWF schedule tomorrow * UF as tolerated * Vascular surgery following * Continue antiHTN medications * Epogen TIW prn * Renal diet
[2019-03-17] MEDS: COREG PO SCH (22:50)
[2019-03-17] MEDS: APRESOLINE PO SCH (22:50)
[2019-03-18] MEDS: MORPHINE IV PRN ×3 (01:23→20:01)
[2019-03-18] MEDS: DESYREL PO SCH ×2 (05:35→23:11)
--- NOTE | 2019-03-18 09:17 | Progress Note ---
Assessment and Plan Status post revision of left arm AV fistula with interposition graft. Status post intervention with angioplasty and stent of left arm AV graft. Patient with drainage from incision however is serous in nature. Recommend elevation of arm and paint wounds with Betadine. Patient request home health for assistance with care. He has no obvious signs of infection at this time. Subjective Date of service: 03/18/19 Interval history: Continues to complain of left arm pain. No significant events overnight. Objective - Constitutional Vitals: Vital Signs - 12hr 03/17/19 03/17/19 03/17/19 21:18 22:33 22:50 Temperature 98.5 F Pulse Rate 104 H 109 H Respiratory 20 20 Rate Blood Pressure 134/97 134/97 O2 Sat by Pulse 100 Oximetry 03/18/19 03/18/19 01:23 05:47 Temperature 97.5 F L Pulse Rate 105 H Respiratory 20 24 Rate Blood Pressure 139/101 O2 Sat by Pulse 100 Oximetry Extremities: abnormal (minimal drainage on dressing. Patient removed the Gunnar bandage overnight. Edema has improved since the procedure. No evidence of purulence or obvious infection. Palpable thrill in graft.) - Labs CBC & Chem 7: 03/17/19 02:08 03/17/19 02:08 Medications & Allergies - Medications Allergies/Adverse Reactions: Allergies No Known Allergies Allergy (Unverified 03/11/19 16:21) Home Medications: Home Medications Medication Instructions Recorded Confirmed Last Taken Type AtorvaSTATin 20 mg PO HS 03/03/19 03/17/19 2 Days Ago History ~03/15/19 Auryxia 420 mg PO TID 03/03/19 03/17/19 1 Day Ago History ~03/16/19 Carvedilol 6.25 mg PO BID 03/03/19 03/17/19 1 Day Ago History ~03/16/19 Dicyclomine 20 mg PO TID 03/03/19 03/17/19 1 Day Ago History ~03/16/19 Folic Acid 1 mg PO DAILY 03/03/19 03/17/19 1 Day Ago History ~03/16/19 Loperamide 2 mg PO PRN PRN 03/03/19 03/17/19 03/11/19 13:00 History Pantoprazole Sodium 40 mg PO DAILY 03/03/19 03/17/19 1 Day Ago History ~03/16/19 Sevelamer Carbonate 800 mg PO TID 03/03/19 03/17/19 1 Day Ago History ~03/16/19 Zofran TAB 4 mg PO PRN PRN 03/03/19 03/17/19 1 Day Ago History ~03/16/19 clonazePAM 1 mg PO HS 03/03/19 03/17/19 2 Days Ago History ~03/15/19 traZODone 50 mg PO HS 03/03/19 03/17/19 2 Days Ago History ~03/15/19 Hydralazine HCl 50 mg PO TID 03/11/19 03/17/19 1 Day Ago History ~03/16/19 raNITIdine HCl [Zantac] 150 mg PO BID 03/17/19 03/17/19 1 Day Ago History ~03/16/19 Active Medications: Generic Name Dose Route Start Last Admin Trade Name Freq PRN Reason Stop Dose Admin Acetaminophen 650 mg 03/17/19 01:28 Tylenol PO Q4H PRN Pain MILD(1-3)/Fever >100.5/OROZCO Atorvastatin Calcium 20 mg 03/17/19 22:00 03/17/19 22:49 Lipitor PO 20 mg QHS [facility] Administration Carvedilol 6.25 mg 03/17/19 22:00 03/17/19 22:50 Coreg PO 6.25 mg BID [facility] Administration Clonazepam 0.5 mg 03/17/19 22:00 03/18/19 05:36 Klonopin PO Not Given QHS [facility] Hydralazine HCl 50 mg 03/17/19 22:00 03/17/19 22:50 Apresoline PO 50 mg TID [facility] Administration Morphine Sulfate 2 mg 03/17/19 01:28 03/18/19 01:23 Morphine IV 2 mg Q4H PRN Administration Pain, Moderate (4-6) Ondansetron HCl 4 mg 03/17/19 01:28 Zofran IV Q8H PRN Nausea And Vomiting Oxycodone/Acetaminophen 2 tab 03/17/19 13:19 Percocet 5/325 PO Q4H PRN Pain, Moderate (4-6) Sevelamer Carbonate 800 mg 03/17/19 16:30 03/17/19 17:30 Renvela PO 800 mg AC [facility] Administration Sodium Chloride 10 ml 03/17/19 10:00 03/17/19 21:19 Sodium Chloride Flush Syringe 10 Ml IV 10 ml BID [facility] Administration Sodium Chloride 10 ml 03/17/19 01:28 Sodium Chloride Flush Syringe 10 Ml IV PRN PRN LINE FLUSH Trazodone HCl 50 mg 03/17/19 22:00 03/18/19 05:35 Desyrel PO Not Given QHS [facility]
[2019-03-18 09:32] LABS: Basophils # (Auto) 0.1 K/mm3 (0.0-0.1); Basophils % (Auto) 1.7 % (0.0-1.8); Eosinophils # (Auto) 0.1 K/mm3 (0.0-0.4); Eosinophils % (Auto) 1.9 % (0.0-4.3); Hematocrit 26.4 % (35.5-45.6); Lymphocytes # (Auto) 0.6 K/mm3 (1.2-5.4); Lymphocytes % (Auto) 9.4 % (13.4-35.0); Mean Corpuscular HGB Conc 34 % (32-34); Mean Corpuscular Volume 102 fl (84-94); Monocytes # (Auto) 0.9 K/mm3 (0.0-0.8); Monocytes % (Auto) 15.1 % (0.0-7.3); Platelet Count 187 K/mm3 (140-440)
[2019-03-18 09:42] LABS: Red Cell Distribution Width 20.8 % (13.2-15.2)
--- NOTE | 2019-03-18 09:43 | Progress Note ---
Assessment and Plan Assessment and plan: --Malfunction AV graft; vascular evaluated the patient S/P Angioplasty and Stent of Left Arm AV Graft with 10 x 40 [place] Balloon and 9 x 60 Cover[place] Stent Graft serous drainage from the incision, continue wound care --End-stage renal disease on hemodialysis; Hemodialysis per schedule nephrology following --Hypertension; moderate control Continue current antihypertensives and when necessary medications --Anemia of chronic disease/ESRD Epogen during dialysis, monitor H&H --DVT prophylaxis; heparin renal dose --DC planning; discharge when cleared by nephrology Disposition; Discharge when AV graft is stable And cleared by neurology History Interval history: Patient seen and examined and chart reviewed No new overnight events reported by the nursing Complaints of some pain in the left upper arm/surgical site Scheduled for hemodialysis today Vital signs reviewed Hospitalist Physical - Constitutional Vitals: Temp Pulse Resp BP Pulse Ox 97.5 F L 105 H 24 139/101 100 03/18/19 05:47 03/18/19 05:47 03/18/19 05:47 03/18/19 05:47 03/18/19 05:47 General appearance: Present: no acute distress, well-nourished - EENT Eyes: Present: PERRL, EOM intact - Neck Neck: Present: supple, normal ROM - Respiratory Respiratory effort: normal Respiratory: bilateral: diminished, negative: rales, rhonchi, wheezing - Cardiovascular Rhythm: regular Heart Sounds: Present: S1 & S2 - Extremities Extremities: no ischemia, abnormal (left upper arm dressing in place) - Abdominal General gastrointestinal: soft, non-tender, non-distended, normal bowel sounds - Integumentary Integumentary: Present: clear, warm - Psychiatric Psychiatric: appropriate mood/affect, cooperative - Neurologic Neurologic: CNII-XII intact, moves all extremities Results - Labs CBC & Chem 7: 03/18/19 07:59 03/18/19 07:59 Labs: Laboratory Last Values WBC 5.1 K/mm3 (4.5-11.0) 03/17/19 02:08 RBC 2.51 M/mm3 (3.65-5.03) L 03/17/19 02:08 Hgb 8.4 gm/dl (11.8-15.2) L 03/17/19 02:08 Hct 24.9 % (35.5-45.6) L 03/17/19 02:08 MCV 99 fl (84-94) H 03/17/19 02:08 MCH 34 pg (28-32) H 03/17/19 02:08 MCHC 34 % (32-34) 03/17/19 02:08 RDW 20.0 % (13.2-15.2) H 03/17/19 02:08 Plt Count 131 K/mm3 (140-440) L 03/17/19 02:08 Lymph % (Auto) 7.5 % (13.4-35.0) L 03/17/19 02:08 [place] % (Auto) 15.1 % (0.0-7.3) H 03/18/19 07:59 Eos % (Auto) 1.9 % (0.0-4.3) 03/18/19 07:59 Baso % (Auto) 1.4 % (0.0-1.8) 03/17/19 02:08 Lymph # 0.4 K/mm3 (1.2-5.4) L 03/17/19 02:08 [place] # 0.9 K/mm3 (0.0-0.8) H 03/18/19 07:59 Eos # 0.1 K/mm3 (0.0-0.4) 03/18/19 07:59 Baso # 0.1 K/mm3 (0.0-0.1) 03/18/19 07:59 Seg Neutrophils % 71.9 % (40.0-70.0) H 03/18/19 07:59 Seg Neutrophils # 4.3 K/mm3 (1.8-7.7) 03/18/19 07:59 PT 16.1 Sec. (12.2-14.9) H 03/16/19 23:31 INR 1.33 (0.87-1.13) H 03/16/19 23:31 APTT 30.5 Sec. (24.2-36.6) 03/17/19 02:08 Sodium 139 mmol/L (137-145) 03/17/19 02:08 Potassium 4.0 mmol/L (3.6-5.0) 03/17/19 02:08 Chloride 99.5 mmol/L (98-107) 03/17/19 02:08 Carbon Dioxide 21 mmol/L (22-30) L 03/17/19 02:08 23 mmol/L 03/17/19 02:08 BUN 35 mg/dL (9-20) H 03/17/19 02:08 8.0 mg/dL (0.8-1.5) H 03/17/19 02:08 Estimated GFR 9 ml/min 03/17/19 02:08 4 % 03/17/19 02:08 Glucose 87 mg/dL (75-100) 03/17/19 02:08 Calcium 10.0 mg/dL (8.4-10.2) 03/17/19 02:08 1.30 mg/dL (0.1-1.2) H 03/16/19 23:31 AST 55 units/L (5-40) H 03/16/19 23:31 ALT 5 units/L (7-56) L 03/16/19 23:31 144 units/L (35-129) H 03/16/19 23:31 8.6 g/dL (6.3-8.2) H 03/16/19 23:31 4.6 g/dL (3.9-5) 03/16/19 23:31 1.2 % 03/16/19 23:31 Active Medications - Current Medications Current Medications: Generic Name Dose Route Start Last Admin Trade Name Freq PRN Reason Stop Dose Admin Acetaminophen 650 mg 03/17/19 01:28 Tylenol PO Q4H PRN Pain MILD(1-3)/Fever >100.5/OROZCO Atorvastatin Calcium 20 mg 03/17/19 22:00 03/17/19 22:49 Lipitor PO 20 mg QHS CAMILO Administration Carvedilol 6.25 mg 03/17/19 22:00 03/17/19 22:50 Coreg PO 6.25 mg BID CAMILO Administration Clonazepam 0.5 mg 03/17/19 22:00 03/18/19 05:36 Klonopin PO Not Given QHS CAMILO Hydralazine HCl 50 mg 03/17/19 22:00 03/17/19 22:50 Apresoline PO 50 mg TID CAMILO Administration Morphine Sulfate 2 mg 03/17/19 01:28 03/18/19 01:23 Morphine IV 2 mg Q4H PRN Administration Pain, Moderate (4-6) Ondansetron HCl 4 mg 03/17/19 01:28 Zofran IV Q8H PRN Nausea And Vomiting Oxycodone/Acetaminophen 2 tab 03/17/19 13:19 Percocet 5/325 PO Q4H PRN Pain, Moderate (4-6) Sevelamer Carbonate 800 mg 03/17/19 16:30 03/17/19 17:30 Renvela PO 800 mg AC CAMILO Administration Sodium Chloride 10 ml 03/17/19 10:00 03/17/19 21:19 Sodium Chloride Flush Syringe 10 Ml IV 10 ml BID CAMILO Administration Sodium Chloride 10 ml 03/17/19 01:28 Sodium Chloride Flush Syringe 10 Ml IV PRN PRN LINE FLUSH Trazodone HCl 50 mg 03/17/19 22:00 03/18/19 05:35 Desyrel PO Not Given QHS CAMILO
[2019-03-18 10:07] LABS: Albumin 4.2 g/dL (3.9-5); BUN/Creatinine Ratio 5; Blood Urea Nitrogen 55 mg/dL (9-20); Calcium 10.2 mg/dL (8.4-10.2); Hemolysis Index 20
[2019-03-18] MEDS: SODIUM CHLORIDE FLUSH SYRINGE 10 ML IV SCH ×2 (10:11→23:17)
[2019-03-18] MEDS: COREG PO SCH ×2 (10:11→23:16)
[2019-03-18] MEDS: APRESOLINE PO SCH ×3 (10:11→20:02)
[2019-03-18] MEDS: RENVELA PO SCH ×3 (10:12→17:31)
[2019-03-18 10:33] LABS: Alanine Aminotransferase < 5.0 units/L (7-56)
[2019-03-18] MEDS ORDERED: ZOFRAN IV PRN (10:36)
[2019-03-18] MEDS ORDERED: PROCRIT IV PRN (11:27)
[2019-03-18] MEDS ORDERED: NACL 0.9% 100 ML IV PRN (11:27)
[2019-03-18 16:11] LABS: Hepatitis C Virus Antibody Non-Reactive (NonReactive)
[2019-03-18 17:15] LABS: Hepatitis B Surface Antigen Non-Reactive (Negative)
[2019-03-18] MEDS ORDERED: NACL 0.9 (PRIMING MACHINE ONLY DIALYSIS) MC ONE (17:44)
--- NOTE | 2019-03-18 17:57 | Progress Note ---
Assessment and Plan Impression: * End stage renal disease * Left arm swelling/pain s/p AVG creation * Hypertension * Anemia secondary to ESRD * Secondary hyperparathyroidism Plan: * Continue MWF and prn schedule * UF as tolerated * Vascular surgery following * Continue antiHTN medications * Epogen TIW prn * Renal diet Subjective Date of service: 03/18/19 Interval history: Patient is seen s/p dialysis. Tolerated HD. Reports SOB - states chronic. Objective - Vital Signs Vital signs: Vital Signs - 12hr 03/18/19 03/18/19 03/18/19 11:45 12:10 13:05 Temperature 98.0 F 98.0 F Pulse Rate 99 H 86 Respiratory 20 20 Rate Blood Pressure 139/100 137/98 O2 Sat by Pulse 100 97 Oximetry 03/18/19 03/18/19 03/18/19 13:10 13:15 13:30 Temperature Pulse Rate 87 89 92 H Respiratory Rate Blood Pressure 140/92 141/98 141/98 O2 Sat by Pulse Oximetry 03/18/19 03/18/19 03/18/19 13:45 14:00 14:15 Temperature Pulse Rate 86 83 84 Respiratory Rate Blood Pressure 145/95 136/93 141/92 O2 Sat by Pulse Oximetry 03/18/19 03/18/19 03/18/19 14:30 14:45 15:00 Temperature Pulse Rate 85 86 84 Respiratory Rate Blood Pressure 138/95 144/96 144/97 O2 Sat by Pulse Oximetry 03/18/19 03/18/19 03/18/19 15:15 15:30 15:45 Temperature Pulse Rate 90 82 82 Respiratory Rate Blood Pressure 153/103 143/94 145/97 O2 Sat by Pulse Oximetry 03/18/19 03/18/19 03/18/19 16:00 16:15 16:30 Temperature Pulse Rate 79 81 81 Respiratory Rate Blood Pressure 139/90 140/88 140/89 O2 Sat by Pulse Oximetry 03/18/19 16:45 Temperature 98.0 F Pulse Rate 81 Respiratory 20 Rate Blood Pressure 144/89 O2 Sat by Pulse Oximetry - General Appearance General appearance: well-developed, well-nourished EENT: ATNC Respiratory: Present: Clear to Ascultation Cardiology: regular, S1S2 Gastrointestinal: normal, no tenderness, no distended Integumentary: no rash, warm and dry Neurologic: no focal deficit, alert and oriented x3 Psychiatric: cooperative - Lab 03/18/19 07:59 03/18/19 07:59 Most recent lab results Calcium 10.2 mg/dL (8.4-10.2) 03/18/19 07:59 Medications & Allergies - Medications Allergies/Adverse Reactions: Allergies No Known Allergies Allergy (Unverified 03/11/19 16:21) Home Medications: Home Medications Medication Instructions Recorded Confirmed Last Taken Type AtorvaSTATin 20 mg PO HS 03/03/19 03/17/19 2 Days Ago History ~03/15/19 Auryxia 420 mg PO TID 03/03/19 03/17/19 1 Day Ago History ~03/16/19 Carvedilol 6.25 mg PO BID 03/03/19 03/17/19 1 Day Ago History ~03/16/19 Dicyclomine 20 mg PO TID 03/03/19 03/17/19 1 Day Ago History ~03/16/19 Folic Acid 1 mg PO DAILY 03/03/19 03/17/19 1 Day Ago History ~03/16/19 Loperamide 2 mg PO PRN PRN 03/03/19 03/17/19 03/11/19 13:00 History Pantoprazole Sodium 40 mg PO DAILY 03/03/19 03/17/19 1 Day Ago History ~03/16/19 Sevelamer Carbonate 800 mg PO TID 03/03/19 03/17/19 1 Day Ago History ~03/16/19 Zofran TAB 4 mg PO PRN PRN 03/03/19 03/17/19 1 Day Ago History ~03/16/19 clonazePAM 1 mg PO HS 03/03/19 03/17/19 2 Days Ago History ~03/15/19 traZODone 50 mg PO HS 03/03/19 03/17/19 2 Days Ago History ~03/15/19 Hydralazine HCl 50 mg PO TID 03/11/19 03/17/19 1 Day Ago History ~03/16/19 raNITIdine HCl [Zantac] 150 mg PO BID 03/17/19 03/17/19 1 Day Ago History ~03/16/19 Active Medications: Generic Name Dose Route Start Last Admin Trade Name Freq PRN Reason Stop Dose Admin Acetaminophen 650 mg 03/17/19 01:28 Tylenol PO Q4H PRN Pain MILD(1-3)/Fever >100.5/OROZCO Atorvastatin Calcium 20 mg 03/17/19 22:00 03/17/19 22:49 Lipitor PO 20 mg QHS CAMILO Administration Carvedilol 6.25 mg 03/17/19 22:00 03/18/19 10:11 Coreg PO 6.25 mg BID CAMILO Administration Clonazepam 0.5 mg 03/17/19 22:00 03/18/19 05:36 Klonopin PO Not Given QHS [facility] Epoetin Juan Jose 10,000 unit 03/18/19 11:27 Procrit IV YESSY PRN hemodialysis Hydralazine HCl 50 mg 03/17/19 22:00 03/18/19 14:20 Apresoline PO Not Given TID [facility] Sodium Chloride 100 mls @ 999 mls/hr 03/18/19 11:27 Nacl 0.9% IV YESSY PRN Hypotension Morphine Sulfate 2 mg 03/17/19 01:28 03/18/19 10:09 Morphine IV 2 mg Q4H PRN Administration Pain, Moderate (4-6) Ondansetron HCl 4 mg 03/18/19 10:36 Zofran IV Q4H PRN Nausea And Vomiting Oxycodone/Acetaminophen 2 tab 03/17/19 13:19 Percocet 5/325 PO Q4H PRN Pain, Moderate (4-6) Sevelamer Carbonate 800 mg 03/17/19 16:30 03/18/19 17:31 Renvela PO 800 mg AC CAMILO Administration Sodium Chloride 10 ml 03/17/19 10:00 03/18/19 10:11 Sodium Chloride Flush Syringe 10 Ml IV 10 ml BID CAMILO Administration Sodium Chloride 10 ml 03/17/19 01:28 Sodium Chloride Flush Syringe 10 Ml IV PRN PRN LINE FLUSH Trazodone HCl 50 mg 03/17/19 22:00 03/18/19 05:35 Desyrel PO Not Given QHS [facility]
[2019-03-19] MEDS: MORPHINE IV PRN ×2 (01:03→09:08)
[2019-03-19] MEDS: RENVELA PO SCH ×2 (08:54→11:31)
[2019-03-19] MEDS: APRESOLINE PO SCH ×2 (08:54→15:01)
[2019-03-19] MEDS: COREG PO SCH (09:01)
[2019-03-19] MEDS: SODIUM CHLORIDE FLUSH SYRINGE 10 ML IV SCH (09:01)
--- NOTE | 2019-03-19 09:45 | Progress Note ---
Assessment and Plan Impression: * End stage renal disease * Left arm swelling/pain s/p AVG creation * Hypertension * Anemia secondary to ESRD * Secondary hyperparathyroidism Plan: * Continue MWF and prn schedule * UF as tolerated * Vascular surgery following * Continue antiHTN medications * Epogen TIW prn * Renal diet Subjective Date of service: 03/19/19 Objective - Vital Signs Vital signs: Vital Signs - 12hr 03/18/19 03/18/19 03/19/19 23:16 23:17 04:47 Temperature 97.9 F 98.5 F Pulse Rate 87 87 Respiratory 18 20 Rate Blood Pressure 133/93 133/93 113/84 O2 Sat by Pulse 95 Oximetry - Lab 03/18/19 07:59 03/18/19 07:59 Most recent lab results Calcium 10.2 mg/dL (8.4-10.2) 03/18/19 07:59 Medications & Allergies - Medications Allergies/Adverse Reactions: Allergies No Known Allergies Allergy (Unverified 03/11/19 16:21) Home Medications: Home Medications Medication Instructions Recorded Confirmed Last Taken Type AtorvaSTATin 20 mg PO HS 03/03/19 03/17/19 2 Days Ago History ~03/15/19 Auryxia 420 mg PO TID 03/03/19 03/17/19 1 Day Ago History ~03/16/19 Carvedilol 6.25 mg PO BID 03/03/19 03/17/19 1 Day Ago History ~03/16/19 Dicyclomine 20 mg PO TID 03/03/19 03/17/19 1 Day Ago History ~03/16/19 Folic Acid 1 mg PO DAILY 03/03/19 03/17/19 1 Day Ago History ~03/16/19 Loperamide 2 mg PO PRN PRN 03/03/19 03/17/19 03/11/19 13:00 History Pantoprazole Sodium 40 mg PO DAILY 03/03/19 03/17/19 1 Day Ago History ~03/16/19 Sevelamer Carbonate 800 mg PO TID 03/03/19 03/17/19 1 Day Ago History ~03/16/19 Zofran TAB 4 mg PO PRN PRN 03/03/19 03/17/19 1 Day Ago History ~03/16/19 clonazePAM 1 mg PO HS 03/03/19 03/17/19 2 Days Ago History ~03/15/19 traZODone 50 mg PO HS 03/03/19 03/17/19 2 Days Ago History ~03/15/19 Hydralazine HCl 50 mg PO TID 03/11/19 03/17/19 1 Day Ago History ~03/16/19 raNITIdine HCl [Zantac] 150 mg PO BID 03/17/19 03/17/19 1 Day Ago History ~03/16/19 Active Medications: Generic Name Dose Route Start Last Admin Trade Name Freq PRN Reason Stop Dose Admin Acetaminophen 650 mg 03/17/19 01:28 Tylenol PO Q4H PRN Pain MILD(1-3)/Fever >100.5/OROZCO Atorvastatin Calcium 20 mg 03/17/19 22:00 03/18/19 23:11 Lipitor PO 20 mg QHS CAMILO Administration Carvedilol 6.25 mg 03/17/19 22:00 03/19/19 09:01 Coreg PO 6.25 mg BID CAMILO Administration Clonazepam 0.5 mg 03/17/19 22:00 03/18/19 23:11 Klonopin PO 0.5 mg QHS CAMILO Administration Epoetin [place] 10,000 unit 03/18/19 11:27 Procrit IV YESSY PRN hemodialysis Hydralazine HCl 50 mg 03/17/19 22:00 03/19/19 08:54 Apresoline PO 50 mg TID CAMILO Administration Sodium Chloride 100 mls @ 999 mls/hr 03/18/19 11:27 Nacl 0.9% IV YESSY PRN Hypotension Morphine Sulfate 2 mg 03/17/19 01:28 03/19/19 09:08 Morphine IV 2 mg Q4H PRN Administration Pain, Moderate (4-6) Ondansetron HCl 4 mg 03/18/19 10:36 03/18/19 20:01 Zofran IV 4 mg Q4H PRN Administration Nausea And Vomiting Oxycodone/Acetaminophen 2 tab 03/17/19 13:19 Percocet 5/325 PO Q4H PRN Pain, Moderate (4-6) Sevelamer Carbonate 800 mg 03/17/19 16:30 03/19/19 08:54 Renvela PO 800 mg AC CAMILO Administration Sodium Chloride 10 ml 03/17/19 10:00 03/19/19 09:01 Sodium Chloride Flush Syringe 10 Ml IV 10 ml BID CAMILO Administration Sodium Chloride 10 ml 03/17/19 01:28 Sodium Chloride Flush Syringe 10 Ml IV PRN PRN LINE FLUSH Trazodone HCl 50 mg 03/17/19 22:00 03/18/19 23:11 Desyrel PO 50 mg QHS CAMILO Administration
--- NOTE | 2019-03-19 10:48 | Discharge Summary ---
Providers - Providers Date of Admission: 03/17/19 00:47 Date of discharge: 03/19/19 Attending physician: JESSICA TREADWELL 03/16/19 22:41 Consult to Physician [CONS] Stat Comment: Consulting Provider: ERICK LARSEN Physician Instructions: Reason For Exam: graft pain 03/17/19 01:28 Consult to Physician [CONS] Routine Comment: Consulting Provider: JANETTE HERNANDEZ Physician Instructions: Reason For Exam: hd [facility] Reason for admission: Malfunction AVG Condition: Stable Hospital course: --Malfunction AV graft; vascular evaluated the patient S/P Angioplasty and Stent of Left Arm AV Graft with 10 x 40 [place] Balloon and 9 x 60 [place] Stent Graft serous drainage from the incision, continue wound care --End-stage renal disease on hemodialysis; Hemodialysis per schedule nephrology following --Hypertension; moderate control Continue current antihypertensives and when necessary medications --Anemia of chronic disease/ESRD Epogen during dialysis, monitor H&H --DVT prophylaxis; heparin renal dose --DC planning; discharge when cleared by nephrology Disposition: DC-30 STILL A PATIENT Time spent for discharge: 32 min Core Measure Documentation - Palliative Care Palliative Care/ Comfort Measures: Not Applicable - Core Measures Any of the following diagnoses?: none Exam - Constitutional Vitals: Temp Pulse Resp BP Pulse Ox 98.5 F 87 20 113/84 95 03/19/19 04:47 03/19/19 04:47 03/19/19 04:47 03/19/19 04:47 03/19/19 04:47 General appearance: Present: no acute distress, well-nourished - EENT Eyes: Present: PERRL, EOM intact - Neck Neck: Present: supple, normal ROM - Respiratory Respiratory effort: normal Respiratory: bilateral: diminished, negative: rales, rhonchi, wheezing - Cardiovascular Rhythm: regular Heart Sounds: Present: S1 & S2 - Extremities Extremities: no ischemia, No edema - Abdominal General gastrointestinal: Present: soft, non-tender, non-distended, normal bowel sounds - Integumentary Integumentary: Present: clear, warm - Musculoskeletal Musculoskeletal: strength equal bilaterally - Psychiatric Psychiatric: appropriate mood/affect, cooperative - Neurologic Neurologic: CNII-XII intact, moves all extremities Plan Activity: advance as tolerated Diet: renal Additional Instructions: f/u Renal/HD per schedule [facility] MD TRAVIS [Primary Care Provider] - 3-5 Days JANETTE HERNANDEZ MD [Staff Physician] - 7 Days CHYNA ARREDONDO MD [Staff Physician] - 7 Days Prescriptions: Mag Hydrox/Aluminum Hyd/Simeth [Maalox Advanced Suspension] 30 ml PO DAILY PRN 30 Days oral.susp PRN Reason: Dyspepsia Pantoprazole [Protonix] 40 mg PO QDAY #30 tablet
[2019-03-19 13:05] VITALS: BP 128/90
== END 2019-03-19 15:15 | disposition home health service (06) | DRG 252 ==
LOC: ED 20:27 → 3A 03-17 00:47
PROVIDERS: ADMIT Internal Medicine; ATTEND Internal Medicine
PROC: 057F3DZ Dilation of Left Cephalic Vein with Intraluminal Device, Percutaneous Approach (ICD-10-PCS; principal; 2019-03-17)
PROC: B51W1ZZ Fluoroscopy of Dialysis Shunt/Fistula using Low Osmolar Contrast (ICD-10-PCS; 2019-03-17)
PROC: B51N1ZZ Fluoroscopy of Left Upper Extremity Veins using Low Osmolar Contrast (ICD-10-PCS; 2019-03-17)
PROC: B51V1ZZ Fluoroscopy of Other Veins using Low Osmolar Contrast (ICD-10-PCS; 2019-03-17)
PROC: 5A1D70Z Performance of Urinary Filtration, Intermittent, Less than 6 Hours Per Day (ICD-10-PCS; 2019-03-18)
DX: T82.858A Stenosis of other vascular prosthetic devices, implants and grafts, initial encounter (principal); N18.6 End stage renal disease; I13.2 Hypertensive heart and chronic kidney disease with heart failure and with stage 5 chronic kidney disease, or end stage renal disease; N25.81 Secondary hyperparathyroidism of renal origin; I87.1 Compression of vein; D63.1 Anemia in chronic kidney disease; Y83.2 Surgical operation with anastomosis, bypass or graft as the cause of abnormal reaction of the patient, or of later complication, without mention of misadventure at the time of the procedure; K21.9 Gastro-esophageal reflux disease without esophagitis; G43.909 Migraine, unspecified, not intractable, without status migrainosus; Z99.2 Dependence on renal dialysis; Z82.49 Family history of ischemic heart disease and other diseases of the circulatory system; Z95.810 Presence of automatic (implantable) cardiac defibrillator; Z90.49 Acquired absence of other specified parts of digestive tract; Y92.098 Other place in other non-institutional residence as the place of occurrence of the external cause
CPT/HCPCS: 36415; 36903; 80048; 80053; 80074; 85025; 85610; 85730; 87116; G0378; A9270-GY; C1725; C1874; C1894; J0690; J1170; J1644; J2250; J2270; J2405; J3010; J7030; J7040; Q9967